=== PATIENT | male | born 1965 | race Caucasian/White ===

== ENCOUNTER 2019-03-01 07:30 | Day surgery (SDC) | payer OTHER ==
[~2019-03-01 07:30] MED LIST: ALPR.5 PO; ASPI81EC PO; ATOR40TA; BACL10 PO; CHOL10002; DOLOPHINE HCL; IBUP600 PO; LOVA20 PO; METH10 PO; OXYACE5T PO; RANI150
== END 2019-03-01 23:20 | disposition home or self-care (01) ==
LOC: WOUND 07:30
DX: L89.313 Pressure ulcer of right buttock, stage 3 (principal); G82.21 Paraplegia, complete; J44.9 Chronic obstructive pulmonary disease, unspecified; E78.5 Hyperlipidemia, unspecified
CPT/HCPCS: 87071; 87075; 87077; 87147; 87186; 87205; G0463

== ENCOUNTER 2019-03-06 12:17 | Day surgery (SDC) | payer OTHER | END 2019-03-06 22:50 | disposition home or self-care (01) | LOC: WOUND 12:17 | DX: L89.213 Pressure ulcer of right hip, stage 3 (principal); L89.313 Pressure ulcer of right buttock, stage 3; G82.21 Paraplegia, complete ==

== ENCOUNTER 2019-03-13 00:10 | Day surgery (SDC) | payer OTHER | END 2019-03-13 23:07 | disposition home or self-care (01) | LOC: WOUND 00:10 | DX: L89.313 Pressure ulcer of right buttock, stage 3 (principal); G82.21 Paraplegia, complete; J44.9 Chronic obstructive pulmonary disease, unspecified; E78.5 Hyperlipidemia, unspecified ==

== ENCOUNTER 2019-03-20 01:00 | Day surgery (SDC) | payer OTHER | END 2019-03-20 22:46 | disposition home or self-care (01) | LOC: WOUND 01:00 | DX: L89.313 Pressure ulcer of right buttock, stage 3 (principal); G82.21 Paraplegia, complete ==

== ENCOUNTER 2019-03-27 12:25 | Day surgery (SDC) | payer OTHER | END 2019-03-27 22:37 | disposition home or self-care (01) | LOC: WOUND 12:25 | DX: L89.313 Pressure ulcer of right buttock, stage 3 (principal); G82.21 Paraplegia, complete; Z86.718 Personal history of other venous thrombosis and embolism ==

== ENCOUNTER 2019-04-03 00:32 | Day surgery (SDC) | payer OTHER | END 2019-04-03 22:48 | disposition home or self-care (01) | LOC: WOUND 00:32 | DX: L89.313 Pressure ulcer of right buttock, stage 3 (principal); G82.21 Paraplegia, complete ==

== ENCOUNTER 2019-04-10 00:26 | Day surgery (SDC) | payer OTHER | END 2019-04-10 22:47 | disposition home or self-care (01) | LOC: WOUND 00:26 | DX: L89.313 Pressure ulcer of right buttock, stage 3 (principal); G82.21 Paraplegia, complete | CPT/HCPCS: G0463 ==

== ENCOUNTER 2019-04-17 00:27 | Day surgery (SDC) | payer OTHER | END 2019-04-17 22:51 | disposition home or self-care (01) | LOC: WOUND 00:27 | DX: L89.313 Pressure ulcer of right buttock, stage 3 (principal); G82.21 Paraplegia, complete; E78.5 Hyperlipidemia, unspecified; J44.9 Chronic obstructive pulmonary disease, unspecified; Z86.718 Personal history of other venous thrombosis and embolism ==

== ENCOUNTER → 2019-04-18 | Outpatient (CLI) | payer OTHER ==
[2019-04-18 15:22] LABS: Source, Urine Catheter
[2019-04-18 18:35] LABS: Bilirubin, Urine Neg (Neg); Blood, Urine Neg (Neg); Glucose Qualitative, Urine Neg (Neg); Ketones, Urine Neg (Neg); Leukocyte Esterase, Urine 1+ (Neg); Nitrite, Urine Pos (Neg); Protein, Urine 1+ (Neg); Urobilinogen, Urine NORM (Normal); pH, Urine 6.5 (5.0-8.0)
[2019-04-18 18:49] LABS: Appearance, Urine Clear (Clear); Color, Urine Yellow (P-Yellow)
[2019-04-18 18:50] LABS: Bacteria Many /hpf; Red Blood Cells, Urine 0-2 /hpf (0-2); Squamous Epithelial Cells Few /hpf (Few)
== END | disposition home or self-care (01) ==
LOC: LAB SHORT 11:00 → LAB SRC 11:00
PROVIDERS: Nurse Practitioner Family
DX: Z00.00 Encounter for general adult medical examination without abnormal findings (principal); E78.5 Hyperlipidemia, unspecified
CPT/HCPCS: 81001; 87077; 87086; 87186

== ENCOUNTER 2019-04-24 00:14 | Day surgery (SDC) | payer OTHER | END 2019-04-24 22:41 | disposition home or self-care (01) | LOC: WOUND 00:14 | DX: L89.313 Pressure ulcer of right buttock, stage 3 (principal); G82.21 Paraplegia, complete; E78.5 Hyperlipidemia, unspecified; J44.9 Chronic obstructive pulmonary disease, unspecified; G89.29 Other chronic pain; F41.9 Anxiety disorder, unspecified; Z86.718 Personal history of other venous thrombosis and embolism ==

== ENCOUNTER 2019-05-01 10:55 | Day surgery (SDC) | payer OTHER | END 2019-05-01 22:39 | disposition home or self-care (01) | LOC: WOUND 10:55 | DX: L89.313 Pressure ulcer of right buttock, stage 3 (principal); G82.21 Paraplegia, complete; E78.5 Hyperlipidemia, unspecified; J44.9 Chronic obstructive pulmonary disease, unspecified ==

== ENCOUNTER 2019-05-08 00:19 | Day surgery (SDC) | payer OTHER | END 2019-05-08 22:44 | disposition home or self-care (01) | LOC: WOUND 00:19 | DX: L89.313 Pressure ulcer of right buttock, stage 3 (principal); G82.21 Paraplegia, complete; E78.5 Hyperlipidemia, unspecified; J44.9 Chronic obstructive pulmonary disease, unspecified; Z79.82 Long term (current) use of aspirin; Z79.899 Other long term (current) drug therapy | CPT/HCPCS: G0463 ==

== ENCOUNTER 2019-09-27 00:21 | Day surgery (SDC) | payer OTHER | END 2019-09-27 22:53 | disposition home or self-care (01) | LOC: WOUND 00:21 | DX: L89.323 Pressure ulcer of left buttock, stage 3 (principal); G82.20 Paraplegia, unspecified; E78.5 Hyperlipidemia, unspecified; J44.9 Chronic obstructive pulmonary disease, unspecified; G89.29 Other chronic pain; F41.9 Anxiety disorder, unspecified; Z88.8 Allergy status to other drugs, medicaments and biological substances; Z86.718 Personal history of other venous thrombosis and embolism; Z87.891 Personal history of nicotine dependence ==

== ENCOUNTER 2019-10-02 08:41 | Day surgery (SDC) | payer OTHER | END 2019-10-02 22:49 | disposition home or self-care (01) | LOC: WOUND 08:41 | DX: L89.322 Pressure ulcer of left buttock, stage 2 (principal); L89.312 Pressure ulcer of right buttock, stage 2 ==

== ENCOUNTER 2019-10-09 00:17 | Day surgery (SDC) | payer OTHER | END 2019-10-09 22:47 | disposition home or self-care (01) | LOC: WOUND 00:17 | DX: L89.323 Pressure ulcer of left buttock, stage 3 (principal); L89.312 Pressure ulcer of right buttock, stage 2; J44.9 Chronic obstructive pulmonary disease, unspecified; E78.5 Hyperlipidemia, unspecified; F41.9 Anxiety disorder, unspecified; Z99.3 Dependence on wheelchair; Z79.899 Other long term (current) drug therapy; Z79.82 Long term (current) use of aspirin ==

== ENCOUNTER 2019-10-16 00:07 | Day surgery (SDC) | payer OTHER | END 2019-10-16 22:49 | disposition home or self-care (01) | LOC: WOUND 00:07 | DX: L89.323 Pressure ulcer of left buttock, stage 3 (principal); E78.5 Hyperlipidemia, unspecified; J44.9 Chronic obstructive pulmonary disease, unspecified; F41.9 Anxiety disorder, unspecified; Z99.3 Dependence on wheelchair; L89.312 Pressure ulcer of right buttock, stage 2; Z79.899 Other long term (current) drug therapy; Z79.82 Long term (current) use of aspirin ==

== ENCOUNTER 2019-10-23 00:38 | Day surgery (SDC) | payer OTHER | END 2019-10-23 22:49 | disposition home or self-care (01) | LOC: WOUND 00:38 | DX: L89.323 Pressure ulcer of left buttock, stage 3 (principal); L89.312 Pressure ulcer of right buttock, stage 2 ==

== ENCOUNTER 2019-10-30 00:11 | Day surgery (SDC) | payer OTHER | END 2019-10-30 22:55 | disposition home or self-care (01) | LOC: WOUND 00:11 | DX: L89.323 Pressure ulcer of left buttock, stage 3 (principal); L89.312 Pressure ulcer of right buttock, stage 2; J44.9 Chronic obstructive pulmonary disease, unspecified; E78.5 Hyperlipidemia, unspecified; Z86.718 Personal history of other venous thrombosis and embolism ==

== ENCOUNTER 2019-11-06 00:21 | Day surgery (SDC) | payer OTHER | END 2019-11-06 22:50 | disposition home or self-care (01) | LOC: WOUND 00:21 | DX: L89.323 Pressure ulcer of left buttock, stage 3 (principal); L89.312 Pressure ulcer of right buttock, stage 2 ==

== ENCOUNTER 2019-11-13 00:29 | Day surgery (SDC) | payer OTHER | END 2019-11-13 22:37 | disposition home or self-care (01) | LOC: WOUND 00:29 | DX: L89.312 Pressure ulcer of right buttock, stage 2 (principal); L89.322 Pressure ulcer of left buttock, stage 2 ==

== ENCOUNTER 2019-11-20 00:11 | Day surgery (SDC) | payer OTHER | END 2019-11-20 22:36 | disposition home or self-care (01) | LOC: WOUND 00:11 | DX: L89.312 Pressure ulcer of right buttock, stage 2 (principal); J44.9 Chronic obstructive pulmonary disease, unspecified; E78.5 Hyperlipidemia, unspecified; F41.9 Anxiety disorder, unspecified ==

== ENCOUNTER 2019-12-11 00:14 | Day surgery (SDC) | payer OTHER | END 2019-12-11 22:51 | disposition home or self-care (01) | LOC: WOUND 00:14 | DX: L89.312 Pressure ulcer of right buttock, stage 2 (principal); E78.5 Hyperlipidemia, unspecified; J44.9 Chronic obstructive pulmonary disease, unspecified; F41.9 Anxiety disorder, unspecified; G89.29 Other chronic pain; Z79.899 Other long term (current) drug therapy ==

== ENCOUNTER 2019-12-18 00:30 | Day surgery (SDC) | payer OTHER | END 2019-12-18 22:51 | disposition home or self-care (01) | LOC: WOUND 00:30 | DX: L89.312 Pressure ulcer of right buttock, stage 2 (principal); J44.9 Chronic obstructive pulmonary disease, unspecified; F41.9 Anxiety disorder, unspecified; Z86.718 Personal history of other venous thrombosis and embolism ==

== ENCOUNTER 2019-12-25 00:09 | Day surgery (SDC) | payer OTHER | END 2019-12-25 23:01 | disposition home or self-care (01) | LOC: WOUND 00:09 | DX: L89.312 Pressure ulcer of right buttock, stage 2 (principal); E78.5 Hyperlipidemia, unspecified; J44.9 Chronic obstructive pulmonary disease, unspecified; F41.9 Anxiety disorder, unspecified; G89.29 Other chronic pain; Z79.899 Other long term (current) drug therapy ==

== ENCOUNTER 2020-01-01 00:26 | Day surgery (SDC) | payer OTHER | END 2020-01-01 22:36 | disposition home or self-care (01) | LOC: WOUND 00:26 | DX: L89.312 Pressure ulcer of right buttock, stage 2 (principal); E78.5 Hyperlipidemia, unspecified; J44.9 Chronic obstructive pulmonary disease, unspecified; F41.9 Anxiety disorder, unspecified; G89.29 Other chronic pain ==

== ENCOUNTER 2020-01-08 00:21 | Day surgery (SDC) | payer OTHER | END 2020-01-08 23:13 | disposition home or self-care (01) | LOC: WOUND 00:21 | DX: L89.312 Pressure ulcer of right buttock, stage 2 (principal); E78.5 Hyperlipidemia, unspecified; F41.9 Anxiety disorder, unspecified; J44.9 Chronic obstructive pulmonary disease, unspecified; G82.20 Paraplegia, unspecified; G89.29 Other chronic pain; Z79.899 Other long term (current) drug therapy ==

== ENCOUNTER 2020-01-22 00:08 | Day surgery (SDC) | payer OTHER | END 2020-01-22 22:39 | disposition home or self-care (01) | LOC: WOUND 00:08 | DX: L89.312 Pressure ulcer of right buttock, stage 2 (principal); J44.9 Chronic obstructive pulmonary disease, unspecified; E78.5 Hyperlipidemia, unspecified; F41.9 Anxiety disorder, unspecified; G82.20 Paraplegia, unspecified; Z79.899 Other long term (current) drug therapy | CPT/HCPCS: G0463 ==

== ENCOUNTER 2020-03-11 00:13 | Day surgery (SDC) | payer OTHER | END 2020-03-11 23:12 | disposition home or self-care (01) | LOC: WOUND 00:13 | DX: L89.312 Pressure ulcer of right buttock, stage 2 (principal); E78.5 Hyperlipidemia, unspecified; J44.9 Chronic obstructive pulmonary disease, unspecified; F41.9 Anxiety disorder, unspecified; Z79.899 Other long term (current) drug therapy; Z79.82 Long term (current) use of aspirin | CPT/HCPCS: G0463 ==

== ENCOUNTER 2020-03-18 01:49 | Day surgery (SDC) | payer OTHER | END 2020-03-18 22:38 | disposition home or self-care (01) | LOC: WOUND 01:49 | DX: L89.312 Pressure ulcer of right buttock, stage 2 (principal); J44.9 Chronic obstructive pulmonary disease, unspecified; E78.5 Hyperlipidemia, unspecified; F41.9 Anxiety disorder, unspecified; Z79.899 Other long term (current) drug therapy | CPT/HCPCS: G0463 ==

== ENCOUNTER 2020-05-16 00:39 | Day surgery (SDC) | payer OTHER | END 2020-05-16 22:58 | disposition home or self-care (01) | LOC: WOUND 00:39 | DX: L89.312 Pressure ulcer of right buttock, stage 2 (principal); E78.5 Hyperlipidemia, unspecified; J44.9 Chronic obstructive pulmonary disease, unspecified; G89.29 Other chronic pain; F41.9 Anxiety disorder, unspecified; Z79.899 Other long term (current) drug therapy | CPT/HCPCS: G0463 ==

== ENCOUNTER 2022-02-04 01:40 | Day surgery (SDC) | payer OTHER | END 2022-02-05 23:38 | disposition home or self-care (01) | LOC: WOUND 01:40 | DX: L89.324 Pressure ulcer of left buttock, stage 4 (principal); E78.5 Hyperlipidemia, unspecified; J44.9 Chronic obstructive pulmonary disease, unspecified; Z86.718 Personal history of other venous thrombosis and embolism; Z88.6 Allergy status to analgesic agent | CPT/HCPCS: A9270; G0463 ==

== ENCOUNTER 2022-02-12 01:22 | Day surgery (SDC) | payer OTHER | END 2022-02-12 23:05 | disposition home or self-care (01) | LOC: WOUND 01:22 | DX: L89.324 Pressure ulcer of left buttock, stage 4 (principal); E78.5 Hyperlipidemia, unspecified; J44.9 Chronic obstructive pulmonary disease, unspecified | CPT/HCPCS: A9270; G0463 ==

== ENCOUNTER 2022-02-19 02:35 | Day surgery (SDC) | payer OTHER | END 2022-02-19 23:00 | disposition home or self-care (01) | LOC: WOUND 02:35 | DX: L89.324 Pressure ulcer of left buttock, stage 4 (principal); E78.5 Hyperlipidemia, unspecified; J44.9 Chronic obstructive pulmonary disease, unspecified | CPT/HCPCS: A9270; G0463 ==

== ENCOUNTER 2022-02-22 08:38 | Day surgery (SDC) | payer OTHER | END 2022-02-22 23:46 | disposition home or self-care (01) | LOC: WOUND 08:38 | DX: L89.329 Pressure ulcer of left buttock, unspecified stage (principal) | CPT/HCPCS: G0463 ==

== ENCOUNTER 2022-02-24 08:00 | Day surgery (SDC) | payer OTHER | END 2022-02-24 23:59 | disposition home or self-care (01) | LOC: WOUND 08:00 | DX: L89.329 Pressure ulcer of left buttock, unspecified stage (principal) | CPT/HCPCS: G0463 ==

== ENCOUNTER 2022-02-26 02:06 | Day surgery (SDC) | payer OTHER | END 2022-02-26 23:31 | disposition home or self-care (01) | LOC: WOUND 02:06 | DX: L89.324 Pressure ulcer of left buttock, stage 4 (principal); E78.5 Hyperlipidemia, unspecified; J44.9 Chronic obstructive pulmonary disease, unspecified | CPT/HCPCS: G0463 ==

== ENCOUNTER 2022-03-02 00:26 | Day surgery (SDC) | payer OTHER | END 2022-03-02 23:05 | disposition home or self-care (01) | LOC: WOUND 00:26 | DX: L89.329 Pressure ulcer of left buttock, unspecified stage (principal) | CPT/HCPCS: G0463 ==

== ENCOUNTER 2022-03-05 01:17 | Day surgery (SDC) | payer OTHER | END 2022-03-05 22:56 | disposition home or self-care (01) | LOC: WOUND 01:17 | DX: L89.329 Pressure ulcer of left buttock, unspecified stage (principal) | CPT/HCPCS: G0463 ==

== ENCOUNTER 2022-03-09 04:14 | Day surgery (SDC) | payer OTHER | END 2022-03-09 23:26 | disposition home or self-care (01) | LOC: WOUND 04:14 | DX: L89.329 Pressure ulcer of left buttock, unspecified stage (principal) | CPT/HCPCS: G0463 ==

== ENCOUNTER 2022-03-12 02:23 | Day surgery (SDC) | payer OTHER | END 2022-03-12 23:21 | disposition home or self-care (01) | LOC: WOUND 02:23 | DX: L89.329 Pressure ulcer of left buttock, unspecified stage (principal) | CPT/HCPCS: G0463 ==

== ENCOUNTER 2022-03-16 02:19 | Day surgery (SDC) | payer OTHER | END 2022-03-16 23:59 | disposition home or self-care (01) | LOC: WOUND 02:19 | DX: L89.329 Pressure ulcer of left buttock, unspecified stage (principal) | CPT/HCPCS: G0463 ==

== ENCOUNTER 2022-03-19 01:06 | Day surgery (SDC) | payer OTHER | END 2022-03-19 22:58 | disposition home or self-care (01) | LOC: WOUND 01:06 | DX: L89.329 Pressure ulcer of left buttock, unspecified stage (principal) | CPT/HCPCS: G0463 ==

== ENCOUNTER 2022-03-23 01:55 | Day surgery (SDC) | payer OTHER | END 2022-03-23 23:53 | disposition home or self-care (01) | LOC: WOUND 01:55 | DX: L89.329 Pressure ulcer of left buttock, unspecified stage (principal) | CPT/HCPCS: G0463 ==

== ENCOUNTER 2022-03-26 02:04 | Day surgery (SDC) | payer OTHER | END 2022-03-26 23:13 | disposition home or self-care (01) | LOC: WOUND 02:04 | DX: L89.329 Pressure ulcer of left buttock, unspecified stage (principal) | CPT/HCPCS: G0463 ==

== ENCOUNTER 2022-03-30 02:02 | Day surgery (SDC) | payer OTHER | END 2022-03-30 23:14 | disposition home or self-care (01) | LOC: WOUND 02:02 | DX: L89.329 Pressure ulcer of left buttock, unspecified stage (principal) | CPT/HCPCS: G0463 ==

== ENCOUNTER 2022-04-02 00:18 | Day surgery (SDC) | payer OTHER | END 2022-04-02 23:22 | disposition home or self-care (01) | LOC: WOUND 00:18 | DX: L89.329 Pressure ulcer of left buttock, unspecified stage (principal) | CPT/HCPCS: G0463 ==

== ENCOUNTER 2022-04-09 01:38 | Day surgery (SDC) | payer OTHER | END 2022-04-09 23:01 | disposition home or self-care (01) | LOC: WOUND 01:38 | DX: L89.324 Pressure ulcer of left buttock, stage 4 (principal); E78.5 Hyperlipidemia, unspecified; J44.9 Chronic obstructive pulmonary disease, unspecified; F41.9 Anxiety disorder, unspecified; Z86.718 Personal history of other venous thrombosis and embolism; G82.20 Paraplegia, unspecified | CPT/HCPCS: 87070; 87075; 87205 ==

== ENCOUNTER 2022-04-16 03:03 | Day surgery (SDC) | payer OTHER | END 2022-04-17 00:32 | disposition home or self-care (01) | LOC: WOUND 03:03 | DX: L89.324 Pressure ulcer of left buttock, stage 4 (principal); G82.20 Paraplegia, unspecified; E78.5 Hyperlipidemia, unspecified; J44.9 Chronic obstructive pulmonary disease, unspecified; Z86.718 Personal history of other venous thrombosis and embolism | CPT/HCPCS: G0463 ==

== ENCOUNTER 2022-04-20 02:30 | Day surgery (SDC) | payer OTHER | END 2022-04-20 22:52 | disposition home or self-care (01) | LOC: WOUND 02:30 | DX: L89.329 Pressure ulcer of left buttock, unspecified stage (principal) ==

== ENCOUNTER 2022-04-23 02:21 | Day surgery (SDC) | payer OTHER | END 2022-04-23 23:59 | disposition home or self-care (01) | LOC: WOUND 02:21 | DX: L89.324 Pressure ulcer of left buttock, stage 4 (principal); G82.21 Paraplegia, complete; E78.5 Hyperlipidemia, unspecified; J44.9 Chronic obstructive pulmonary disease, unspecified; G82.20 Paraplegia, unspecified ==

== ENCOUNTER 2022-04-27 02:03 | Day surgery (SDC) | payer OTHER | END 2022-04-27 22:44 | disposition home or self-care (01) | LOC: WOUND 02:03 | DX: L89.324 Pressure ulcer of left buttock, stage 4 (principal) ==

== ENCOUNTER 2022-04-30 03:17 | Day surgery (SDC) | payer OTHER | END 2022-04-30 23:35 | disposition home or self-care (01) | LOC: WOUND 03:17 | DX: L89.324 Pressure ulcer of left buttock, stage 4 (principal); G82.21 Paraplegia, complete; J44.9 Chronic obstructive pulmonary disease, unspecified; E78.5 Hyperlipidemia, unspecified; G82.20 Paraplegia, unspecified; Z86.718 Personal history of other venous thrombosis and embolism ==

== ENCOUNTER 2022-05-04 02:41 | Day surgery (SDC) | payer OTHER | END 2022-05-04 23:09 | disposition home or self-care (01) | LOC: WOUND 02:41 | DX: L89.324 Pressure ulcer of left buttock, stage 4 (principal); G82.21 Paraplegia, complete ==

== ENCOUNTER 2022-05-07 01:06 | Day surgery (SDC) | payer OTHER | END 2022-05-07 23:26 | disposition home or self-care (01) | LOC: WOUND 01:06 | DX: L89.324 Pressure ulcer of left buttock, stage 4 (principal); L98.419 Non-pressure chronic ulcer of buttock with unspecified severity; E78.5 Hyperlipidemia, unspecified; J44.9 Chronic obstructive pulmonary disease, unspecified; G89.29 Other chronic pain; F41.9 Anxiety disorder, unspecified ==

== ENCOUNTER 2022-05-11 01:31 | Day surgery (SDC) | payer OTHER | END 2022-05-11 23:22 | disposition home or self-care (01) | LOC: WOUND 01:31 | DX: L89.324 Pressure ulcer of left buttock, stage 4 (principal) | CPT/HCPCS: G0463 ==

== ENCOUNTER 2022-05-14 02:01 | Day surgery (SDC) | payer OTHER | END 2022-05-14 23:18 | disposition home or self-care (01) | LOC: WOUND 02:01 | DX: L89.324 Pressure ulcer of left buttock, stage 4 (principal); G82.21 Paraplegia, complete | CPT/HCPCS: G0463 ==

== ENCOUNTER 2022-05-18 02:47 | Day surgery (SDC) | payer OTHER | END 2022-05-18 23:31 | disposition home or self-care (01) | LOC: WOUND 02:47 | DX: L89.324 Pressure ulcer of left buttock, stage 4 (principal); G82.21 Paraplegia, complete; G82.20 Paraplegia, unspecified; Z86.718 Personal history of other venous thrombosis and embolism; J44.9 Chronic obstructive pulmonary disease, unspecified | CPT/HCPCS: G0463 ==

== ENCOUNTER → 2022-05-18 | Outpatient (CLI) | payer OTHER | LOC: LAB SHORT 12:08 → LAB 12:08 | DX: N39.0 Urinary tract infection, site not specified (principal) | CPT/HCPCS: 87077; 87086; 87186 ==

== ENCOUNTER 2022-05-25 03:59 | Day surgery (SDC) | payer OTHER | END 2022-05-25 23:19 | disposition home or self-care (01) | LOC: WOUND 03:59 | DX: L89.324 Pressure ulcer of left buttock, stage 4 (principal); G82.21 Paraplegia, complete; E78.5 Hyperlipidemia, unspecified; J44.9 Chronic obstructive pulmonary disease, unspecified; Z86.718 Personal history of other venous thrombosis and embolism | CPT/HCPCS: G0463 ==

== ENCOUNTER 2022-06-01 08:00 | Day surgery (SDC) | payer OTHER | END 2022-06-01 23:59 | disposition home or self-care (01) | LOC: WOUND 08:00 | DX: L89.324 Pressure ulcer of left buttock, stage 4 (principal); G82.21 Paraplegia, complete ==

== ENCOUNTER 2022-06-08 03:31 | Day surgery (SDC) | payer OTHER | END 2022-06-08 22:43 | disposition home or self-care (01) | LOC: WOUND 03:31 | DX: L89.324 Pressure ulcer of left buttock, stage 4 (principal); G82.21 Paraplegia, complete | CPT/HCPCS: G0463 ==

== ENCOUNTER 2022-06-15 00:44 | Day surgery (SDC) | payer OTHER | END 2022-06-15 22:58 | disposition home or self-care (01) | LOC: WOUND 00:44 | DX: L89.324 Pressure ulcer of left buttock, stage 4 (principal); G82.21 Paraplegia, complete | CPT/HCPCS: G0463 ==

== ENCOUNTER 2022-06-29 02:57 | Day surgery (SDC) | payer OTHER | END 2022-06-29 23:03 | disposition home or self-care (01) | LOC: WOUND 02:57 | DX: L89.324 Pressure ulcer of left buttock, stage 4 (principal); G82.20 Paraplegia, unspecified | CPT/HCPCS: A9270; G0463 ==

== ENCOUNTER 2022-07-20 01:27 | Day surgery (SDC) | payer OTHER | END 2022-07-20 22:40 | disposition home or self-care (01) | LOC: WOUND 01:27 | DX: L89.324 Pressure ulcer of left buttock, stage 4 (principal); G82.21 Paraplegia, complete | CPT/HCPCS: G0463 ==

== ENCOUNTER 2022-08-03 01:23 | Day surgery (SDC) | payer OTHER | END 2022-08-03 22:46 | disposition home or self-care (01) | LOC: WOUND 01:23 | DX: L89.324 Pressure ulcer of left buttock, stage 4 (principal); G82.21 Paraplegia, complete | CPT/HCPCS: G0463 ==

== ENCOUNTER 2022-08-17 00:26 | Day surgery (SDC) | payer OTHER | END 2022-08-17 22:54 | disposition home or self-care (01) | LOC: WOUND 00:26 | DX: L89.324 Pressure ulcer of left buttock, stage 4 (principal); G82.21 Paraplegia, complete | CPT/HCPCS: G0463 ==

== ENCOUNTER 2022-09-06 00:28 | Day surgery (SDC) | payer OTHER | END 2022-09-06 22:42 | disposition home or self-care (01) | LOC: WOUND 00:28 | DX: L89.324 Pressure ulcer of left buttock, stage 4 (principal); G82.21 Paraplegia, complete | CPT/HCPCS: G0463 ==

== ENCOUNTER 2022-10-05 02:07 | Day surgery (SDC) | payer OTHER | END 2022-10-06 23:02 | disposition home or self-care (01) | LOC: WOUND 02:07 | DX: L89.324 Pressure ulcer of left buttock, stage 4 (principal); G82.21 Paraplegia, complete | CPT/HCPCS: G0463 ==

== ENCOUNTER → 2022-10-14 | Outpatient (CLI) | payer OTHER | END | disposition home or self-care (01) | LOC: LAB SHORT 12:30 → LAB 12:30 | DX: R30.0 Dysuria (principal) | CPT/HCPCS: 87077; 87086; 87186 ==

== ENCOUNTER → 2023-04-20 | Outpatient (CLI) | payer OTHER | END | disposition home or self-care (01) | LOC: LAB 12:14 → LAB SHORT 12:14 | DX: R30.0 Dysuria (principal) | CPT/HCPCS: 87077; 87086; 87186 ==

== ENCOUNTER → 2023-08-02 | Outpatient (CLI) | payer OTHER ==
[2023-08-05 09:57] LABS: 6-ACETYLMORPHINE, URN, QUANT <10 ng/mL; CODEINE, URN, QUANT <20 ng/mL; HYDROCODONE, URN, QUANT <20 ng/mL; HYDROMORPHONE, URN, QUANT <20 ng/mL; MORPHINE, URN, QUANT <20 ng/mL; NORHYDROCODONE, URN, QUANT <20 ng/mL; NOROXYCODONE, URN, QUANT 386 ng/mL; NOROXYMORPHONE, URN, QUANT 28 ng/mL; OXYCODONE, URN, QUANT 407 ng/mL; OXYMORPHONE, URN, QUANT <20 ng/mL
[2023-08-05 11:11] LABS: 7-AMINOCLONAZEPAM, URN, QUANT <5 ng/mL; A-HYDROXYALPRAZOLAM, URN, QNT 119 ng/mL; A-HYDROXYMIDAZOLAM, URN, QNT <20 ng/mL; ALPRAZOLAM, URN, QUANT 52 ng/mL; CHLORDIAZEPOXIDE, URN, QUANT <20 ng/mL; CLONAZEPAM, URN, QUANT <5 ng/mL; DIAZEPAM, URN, QUANT <20 ng/mL; LORAZEPAM, URN, QUANT <20 ng/mL; MIDAZOLAM, URN, QUANT <20 ng/mL; NORDIAZEPAM, URN, QUANT <20 ng/mL; OXAZEPAM, URN, QUANT <20 ng/mL; TEMAZEPAM, URN, QUANT <20 ng/mL
[2023-08-07 14:35] LABS: EDDP,URN,QUANT 579 ng/mL; METHADONE,URN,QUANT 452 ng/mL
== END ==
LOC: LAB SHORT 14:43 → LAB 14:43
PROVIDERS: Family Medicine
DX: R30.0 Dysuria (principal); Z79.899 Other long term (current) drug therapy
CPT/HCPCS: 87077; 87086; 87186; G0480; G0481

== ENCOUNTER → 2024-05-18 | Outpatient (CLI) | payer OTHER ==
[~2024-05-18] MED LIST changes: +ATOR20 PO; +LOSA50 PO
== END | disposition home or self-care (01) ==
LOC: LAB 15:28 → LAB SHORT 15:28
DX: R35.0 Frequency of micturition (principal)
CPT/HCPCS: 87077; 87086; 87186

== ENCOUNTER → 2024-08-21 | Outpatient (CLI) | payer OTHER | END | disposition home or self-care (01) | LOC: LAB 15:14 → LAB SHORT 15:14 | DX: R30.0 Dysuria (principal) | CPT/HCPCS: 87077; 87086; 87186 ==

== ENCOUNTER 2025-01-18 12:23 | Emergency (ER) | payer OTHER ==
[~2025-01-18] VITALS: Ht 172.7 cm; Wt 73.5 kg
[2025-01-18] MEDS ORDERED: ALPRAZOLAM0.5 M1 PO (14:47)
[2025-01-18] MEDS ORDERED: ATORVASTATIN CA20 MG PO (14:47)
[2025-01-18 17:26] VITALS: BP 185/84
== END 2025-01-18 17:26 | disposition home or self-care (01) ==
LOC: ER 12:23
DX: S72.451A Displaced supracondylar fracture without intracondylar extension of lower end of right femur, initial encounter for closed fracture (principal); I10 Essential (primary) hypertension; E78.00 Pure hypercholesterolemia, unspecified; X58.XXXA Exposure to other specified factors, initial encounter; Z87.891 Personal history of nicotine dependence; Z79.82 Long term (current) use of aspirin; Z79.899 Other long term (current) drug therapy; Z88.8 Allergy status to other drugs, medicaments and biological substances
CPT/HCPCS: 73562-RT; 99283-25

== ENCOUNTER 2025-05-27 00:26 | Day surgery (SDC) | payer OTHER ==
[~2025-05-27 00:26] MED LIST changes: +ALPRAZOLAM0.5 M1 PO; +ATORVASTATIN CA20 MG PO
== END 2025-05-27 23:06 | disposition home or self-care (01) ==
LOC: WOUND
DX: L89.313 Pressure ulcer of right buttock, stage 3 (principal); G82.21 Paraplegia, complete; E78.5 Hyperlipidemia, unspecified; J44.9 Chronic obstructive pulmonary disease, unspecified; F17.210 Nicotine dependence, cigarettes, uncomplicated; Z88.8 Allergy status to other drugs, medicaments and biological substances; I10 Essential (primary) hypertension
CPT/HCPCS: A6213; G0463